=== PATIENT | female | born 1995 | race African-American/Black ===

== ENCOUNTER 2017-04-15 19:00 | Emergency (ER) | payer MEDICAID, OTHER ==
[~2017-04-15] VITALS: Ht 152.4 cm; Wt 52.2 kg
[2017-04-15] MEDS ORDERED: SODIUM CHLORIDE 0.9% 1,000 ML IV ONE (19:23)
[2017-04-15] MEDS ORDERED: ONDANSETRON HCL 4MG/2ML VIAL IV STA (19:23)
[2017-04-15 21:12] VITALS: BP 110/61
== END 2017-04-15 21:30 | disposition home or self-care (01) ==
LOC: ER 20:22
DX: T40.7X1A Poisoning by cannabis (derivatives), accidental (unintentional), initial encounter (principal); F41.9 Anxiety disorder, unspecified; Y92.488 Other paved roadways as the place of occurrence of the external cause
CPT/HCPCS: 81025; 96361; 96374; 99285; J2405; J7030; Z7610